=== PATIENT | male | born 1950 | race Caucasian/White ===

== ENCOUNTER 2017-11-25 07:30 | Outpatient (CLI) | payer MEDICARE, MEDICAID ==
--- NOTE | 2017-11-25 14:21 | PET ---
WHOLE BODY PET CT: INDICATION: History of melanoma of the right face. RADIOPHARMACEUTICAL: 12.4 mCi of F18-FDG IV. TECHNIQUE: PET CT images were obtained of the whole body from the vertex of the skull through the level of the f eet. CT images were obtained for attenuation correction purposes only. No comparisons are available. FINDINGS: Biodistribution: The biodistribution for this examination appears acceptable. Head/Neck: No hypermetabolic soft tissue mass or lymphadenopathy is demonstrated. Thorax: No hypermetabolic pulmonary nodule, pleural effusion, or lymphadenopathy is present. Abdomen/Pelvis: No hypermetabolic lymphadenopathy or ascites is present. Skin/Osseous Structures: No hypermetabolic skin or osseous abnormality is demonstrated. There is some increased uptake involvi ng the intrinsic foot musculature of both feet, which is likely related to muscular contractions duri ng the examination. IMPRESSION: 1. No definite scintigraphic evidence to suggest presence of metastatic disease. 2. No hypermetabolic skin lesion identified. No hypermetabolic lymphadenopathy noted. POS: JOSE
== END 2017-11-25 07:31 | disposition home or self-care (01) ==
LOC: PET 07:30
PROVIDERS: ATTEND Internal Medicine Hematology & Oncology
DX: C43.39 Malignant melanoma of other parts of face (principal); C34.90 Malignant neoplasm of unspecified part of unspecified bronchus or lung
CPT/HCPCS: 78816; A9552